=== PATIENT | male | born 1960 | race African-American/Black ===

== ENCOUNTER 2017-10-01 09:13 | Emergency (ER) | payer BC ==
[~2017-10-01] VITALS: Ht 177.8 cm; Wt 91.0 kg
[~2017-10-01 09:13] MED LIST: AMLODIPINE PO; ASA PO; ASACOL; DEXILANT PO; FERROUS SULFATE PO; HYDROCODONE; MERCAPTOPURINE PO; NOVOLIN; PREDNISONE PO; REMICADE; TIZANIDINE; ZOLPIDEM
[2017-10-01] MEDS ORDERED: ONDANSETRON HCL 4MG/2ML VIAL IV STA (09:39)
[2017-10-01] MEDS ORDERED: KETOROLAC 30MG/ML VIAL IV ONE (09:45)
[2017-10-01] MEDS ORDERED: SODIUM CHLORIDE 0.9% 1,000 ML IV ONE (09:54)
[2017-10-01 10:12] LABS: INR 1.5; PROTHROMBIN TIME 15.4 sec (9.4-11.6)
[2017-10-01 10:13] LABS: CARBON DIOXIDE 30 mEq/L (21-32); CHLORIDE 105 mEq/L (98-107)
[2017-10-01 10:15] LABS: BASOPHILS % 0.3 % (0.0-2.0); EOSINOPHILS % 0.6 % (0.0-5.0); HEMATOCRIT. 40.8 % (42.0-52.0); HEMOGLOBIN. 13.5 g/dL (14.0-18.0); LYMPHOCYTES % 8.9 % (20.0-50.0); MEAN CORPUSCULAR HEMOGLOBIN 28.9 pg (28.0-32.0); MEAN CORPUSCULAR VOLUME 87.4 fL (80.0-94.0); MEAN PLATELET VOLUME 7.9 fl (7.4-10.4); MONOCYTES % 5.1 % (2.0-8.0); NEUTROPHILS % 85.1 % (40.0-76.0); PLATELET 379 x1000/uL (130-400); RED BLOOD CELL COUNT 4.66 mill/uL (4.7-6.1); RED CELL DISTRIBUTION WIDTH 16.9 % (11.6-14.6)
[2017-10-01] MEDS ORDERED: MORPHINE SULFATE 4 MG/ML CPJ (NOT FOR IM USE) IV ONE ×2 (11:00→11:45)
[2017-10-01 11:24] LABS: CLARITY URINE CLEAR (CLEAR); COLOR URINE YELLOW (YELLOW); KETONES URINE NEGATIVE (NEGATIVE); LEUKOCYTE ESTERASE URINE TRACE (NEGATIVE); NITRITE URINE NEGATIVE (NEGATIVE); OCCULT BLOOD URINE NEGATIVE (NEGATIVE); PH URINE 7.5 (4.5-8.0); PROTEIN URINE TRACE (NEGATIVE); SPECIFIC GRAVITY URINE 1.022 (1.005-1.030); UROBILINOGEN URINE 0.2 E.U./dL (0.2-1.0)
[2017-10-01] MEDS ORDERED: DEXAMETHASONE 4MG/ML 1ML VIAL IV ONE (12:30)
[2017-10-01 12:39] VITALS: BP 128/78
== END 2017-10-01 13:08 | disposition home or self-care (01) ==
LOC: ER 09:19
DX: K51.90 Ulcerative colitis, unspecified, without complications (principal); E11.9 Type 2 diabetes mellitus without complications; F17.200 Nicotine dependence, unspecified, uncomplicated; I10 Essential (primary) hypertension; Z79.4 Long term (current) use of insulin; Z88.6 Allergy status to analgesic agent
CPT/HCPCS: 36415; 74176; 80053; 81001; 83690; 85025; 85610; 96361; 96374; 96375; 96376; 99285; J1100; J1885; J2270; J2405; J7030

== ENCOUNTER 2018-04-09 07:56 | Inpatient (IN) | payer BC ==
[~2018-04-09] VITALS: Ht 177.8 cm; Wt 100.7 kg
[~2018-04-09 07:56] MED LIST changes: -AMLODIPINE PO; -ASACOL; -FERROUS SULFATE PO; +MERC50TA PO; -MERCAPTOPURINE PO; +P20 PO; -PREDNISONE PO; -TIZANIDINE; -ZOLPIDEM
[2018-04-09] MEDS ORDERED: METHYLPREDNISOLONE SOD SUCC 125 MG/2 ML VIAL IV ONE (10:45)
[2018-04-09] MEDS ORDERED: ONDANSETRON HCL 4MG/2ML VIAL IV ONE (10:45)
[2018-04-09] MEDS ORDERED: MORPHINE SULFATE 4 MG/ML CPJ (NOT FOR IM USE) IV ONE ×2 (10:45→15:15)
[2018-04-09] MEDS ORDERED: SODIUM CHLORIDE 0.9% 1,000 ML IV ONE (10:45)
[2018-04-09 11:11] LABS: HEMATOCRIT. 38.4 % (42.0-52.0); HEMOGLOBIN. 12.5 g/dL (14.0-18.0); MEAN CORPUSCULAR HEMOGLOBIN 28.4 pg (28.0-32.0); MEAN PLATELET VOLUME 8.2 fl (7.4-10.4); PLATELET 316 x1000/uL (130-400); RED BLOOD CELL COUNT 4.41 mill/uL (4.7-6.1); RED CELL DISTRIBUTION WIDTH 17.1 % (11.6-14.6)
[2018-04-09 11:18] LABS: CHLORIDE 107 mEq/L (98-107)
[2018-04-09] MEDS ORDERED: LEVOFLOXACIN 500MG PREMIX 100 ML IV ONE (11:30)
[2018-04-09] MEDS ORDERED: METRONIDAZOLE 500 MG PREMIX 100 ML IV ONE (11:30)
[2018-04-09 12:29] LABS: PLATELET ESTIMATE NORMAL
[2018-04-09 16:00] VITALS: BP 117/47
[2018-04-09 17:00] VITALS: BP 117/47
[2018-04-09] MEDS ORDERED: LEVVL SQ (18:09)
[2018-04-09] MEDS ORDERED: INSASP SUBCUT (18:09)
[2018-04-09] MEDS ORDERED: MORPHINE SULFATE 2 MG/ML CPJ (NOT FOR IM USE) IV PRN (19:45)
[2018-04-09] MEDS ORDERED: DEXTROSE 50% WATER 50ML SYRINGE IV PRN (19:45)
[2018-04-09 20:00] VITALS: BP 149/57
[2018-04-09] MEDS ORDERED: KCL 20MEQ/100ML PREMIX 100 ML IV NR (20:00)
[2018-04-09] MEDS: ACETAMINOPHEN 650MG/20.3ML UDC PO PRN (20:13)
[2018-04-09] MEDS: PANTOPRAZOLE SODIUM 40 MG/VIAL IV SCH (20:14)
[2018-04-09] MEDS: ENOXAPARIN 30MG/0.3ML SYR SUBCUT SCH (20:14)
[2018-04-09] MEDS: MORPHINE SULFATE 4 MG/ML CPJ (NOT FOR IM USE) IV PRN (20:16)
[2018-04-09] MEDS: SODIUM CHL 0.45% + KCL 20MEQ/L 1,000 ML IV SCH (21:53)
[2018-04-09] MEDS: BLOOD SUGAR DIAGNOSTIC STRIP TEST SCH (21:53)
[2018-04-09] MEDS: INSULIN LISPRO 100 UNITS/ML SUBCUT SCH (22:42)
[2018-04-10] VITALS: BP 165/84
[2018-04-10] MEDS: MORPHINE SULFATE 4 MG/ML CPJ (NOT FOR IM USE) IV PRN ×5 (01:20→22:39)
[2018-04-10] MEDS: ACETAMINOPHEN 650MG/20.3ML UDC PO PRN ×2 (02:36→09:06)
[2018-04-10 04:00] VITALS: BP 145/84
[2018-04-10] MEDS: BLOOD SUGAR DIAGNOSTIC STRIP TEST SCH ×4 (06:40→21:42)
[2018-04-10] MEDS ORDERED: DIATR MEGLU/DIATRIZOATE SOLN 30ML PO SCH (07:00)
[2018-04-10 08:00] VITALS: BP 154/87
[2018-04-10] MEDS: PANTOPRAZOLE SODIUM 40 MG/VIAL IV SCH (08:42)
[2018-04-10] MEDS: ENOXAPARIN 30MG/0.3ML SYR SUBCUT SCH ×2 (08:42→21:42)
[2018-04-10] MEDS ORDERED: DIATR MEGLU/DIATRIZOATE SOLN 30ML PO ONE (09:00)
[2018-04-10] MEDS: INSULIN LISPRO 100 UNITS/ML SUBCUT SCH ×4 (09:48→21:52)
[2018-04-10] MEDS ORDERED: LEVOFLOXACIN 500MG PREMIX 100 ML IV SCH (10:00)
[2018-04-10 10:32] LABS: HEMATOCRIT. 37.7 % (42.0-52.0); HEMOGLOBIN. 12.3 g/dL (14.0-18.0); MEAN CORPUSCULAR HEMOGLOBIN 28.4 pg (28.0-32.0); MEAN PLATELET VOLUME 7.8 fl (7.4-10.4); PLATELET 291 x1000/uL (130-400); RED BLOOD CELL COUNT 4.33 mill/uL (4.7-6.1); RED CELL DISTRIBUTION WIDTH 17.1 % (11.6-14.6)
[2018-04-10 10:40] LABS: CHLORIDE 108 mEq/L (98-107)
[2018-04-10 10:48] LABS: HDL CHOLESTEROL 45 mg/dL (40-59)
[2018-04-10 10:49] LABS: LDL CHOLESTEROL 56 mg/dL (5-100)
[2018-04-10] MEDS ORDERED: IOHEXOL-300 100 ML BOTTLE ONE (12:22)
[2018-04-10] MEDS ORDERED: HYDROCODONE/ACETAMINOPHEN 5/325MG TABLET PO PRN (13:30)
[2018-04-10] MEDS ORDERED: KCL 20MEQ/100ML PREMIX 100 ML IV NR (14:00)
[2018-04-10] MEDS ORDERED: PIPERACILLIN/TAZOBACTAM 3.375GM/50ML PREMIX IV ONE (14:00)
[2018-04-10] MEDS ORDERED: ONDANSETRON HCL 4MG/2ML VIAL IV PRN (14:00)
[2018-04-10] MEDS: MORPHINE SULFATE 4 MG/ML CPJ (NOT FOR IM USE) IV NR ×2 (15:29→16:39)
[2018-04-10] MEDS: METHYLPREDNISOLONE SOD SUCC 40 MG/ML VIAL IV SCH ×2 (15:30→21:42)
[2018-04-10] MEDS: METRONIDAZOLE 500 MG PREMIX 100 ML IV SCH ×2 (15:31→21:42)
[2018-04-10 16:00] VITALS: BP 154/85
[2018-04-10] MEDS: SODIUM CHL 0.45% + KCL 20MEQ/L 1,000 ML IV SCH (16:43)
[2018-04-10] MEDS ORDERED: MESALAMINE 400 MG CAPSULE.DR PO SCH (17:00)
[2018-04-10] MEDS: PIPERACILLIN/TAZ 3.375G PREMIX 50 ML IV SCH (18:36)
[2018-04-10 19:17] LABS: HEMATOCRIT 36.4 % (42.0-52.0); HEMOGLOBIN 11.9 g/dL (14.0-18.0); MEAN CORPUSCULAR HEMOGLOBIN 28.3 pg (28.0-32.0); MEAN CORPUSCULAR VOLUME 86.4 fL (80.0-94.0); PLATELET 268 x1000/uL (130-400); RED BLOOD CELL COUNT 4.22 mill/uL (4.7-6.1); RED CELL DISTRIBUTION WIDTH 17.5 % (11.6-14.6)
[2018-04-10 19:49] LABS: CHLORIDE 107 mEq/L (98-107)
[2018-04-10 19:57] LABS: PLATELET ESTIMATE NORMAL
[2018-04-10 20:00] VITALS: BP 169/79
[2018-04-10] MEDS ORDERED: CLONIDINE 0.1MG TABLET PO PRN (21:45)
[2018-04-11] VITALS: BP 128/66
[2018-04-11] MEDS: PIPERACILLIN/TAZ 3.375G PREMIX 50 ML IV SCH (00:45)
[2018-04-11 02:04] LABS: CLARITY URINE CLEAR (CLEAR); COLOR URINE YELLOW (YELLOW); KETONES URINE TRACE (NEGATIVE); LEUKOCYTE ESTERASE URINE NEGATIVE (NEGATIVE); NITRITE URINE NEGATIVE (NEGATIVE); OCCULT BLOOD URINE NEGATIVE (NEGATIVE); PROTEIN URINE 1+ (NEGATIVE); SPECIFIC GRAVITY URINE 1.032 (1.005-1.030); UROBILINOGEN URINE 0.2 E.U./dL (0.2-1.0)
[2018-04-11] MEDS: MORPHINE SULFATE 4 MG/ML CPJ (NOT FOR IM USE) IV PRN (02:50)
[2018-04-11 03:08] VITALS: BP 147/84
== END 2018-04-11 03:55 | disposition short-term general hospital (02) | DRG 872 ==
LOC: ER 07:56 → 6EST 11:30 → EDBEDREQTM 11:30 → EDBEDREQ 11:30 → ENRESERV 14:07 → 5WST 04-10 15:59
PROVIDERS: ADMIT Internal Medicine; ATTEND Internal Medicine
DX: A41.9 Sepsis, unspecified organism (principal); K51.90 Ulcerative colitis, unspecified, without complications; L03.114 Cellulitis of left upper limb; L03.113 Cellulitis of right upper limb; E11.319 Type 2 diabetes mellitus with unspecified diabetic retinopathy without macular edema; E86.0 Dehydration; E87.6 Hypokalemia; I10 Essential (primary) hypertension; K80.20 Calculus of gallbladder without cholecystitis without obstruction; Z86.711 Personal history of pulmonary embolism; Z79.4 Long term (current) use of insulin
CPT/HCPCS: 36415; 74177; 80048; 80053; 80061; 81003; 82270; 82962; 85025; 85027; 87015; 87040; 87045; 87070; 87077; 87086; 87205; 87427; 87449; 87493; 89055; 96365; 96366; 96375; 99285; C9113; J1650; J1815; J1956; J2270; J2405; J2543; J2920; J2930; J3480; J3490; J7030; J7050; Q9963; Q9967

== ENCOUNTER 2018-10-30 07:21 | Inpatient (IN) | payer BC ==
[~2018-10-30] VITALS: Ht 177.8 cm; Wt 96.3 kg
[~2018-10-30 07:21] MED LIST changes: +INSASP SUBCUT; +LEVVL SQ
[2018-10-30] MEDS ORDERED: MORPHINE SULFATE 4 MG/ML CPJ (NOT FOR IM USE) IV STA (07:53)
[2018-10-30] MEDS ORDERED: ACETAMINOPHEN 325MG TABLET PO ONE (08:00)
[2018-10-30] MEDS ORDERED: SODIUM CHLORIDE 0.9% 1000ML BAG (SEPSIS BOLUS) IV ONE (08:00)
[2018-10-30] MEDS ORDERED: PIPERACILLIN/TAZ 3.375G PREMIX 50 ML IV ONE (08:00)
[2018-10-30] MEDS ORDERED: ONDANSETRON HCL 4MG/2ML INJ IV ONE (08:15)
[2018-10-30] MEDS ORDERED: KETOROLAC 30MG/ML VIAL IV ONE (08:15)
[2018-10-30 08:43] LABS: HEMATOCRIT. 41.2 % (42.0-52.0); HEMOGLOBIN. 13.4 g/dL (14.0-18.0); MEAN CORPUSCULAR HEMOGLOBIN 28.5 pg (28.0-32.0); MEAN CORPUSCULAR VOLUME 87.5 fL (80.0-94.0); MEAN PLATELET VOLUME 8.7 fl (7.4-10.4); PLATELET 240 x1000/uL (130-400); RED BLOOD CELL COUNT 4.71 mill/uL (4.7-6.1); RED CELL DISTRIBUTION WIDTH 18.6 % (11.6-14.6)
[2018-10-30 08:51] LABS: CHLORIDE 103 mEq/L (98-107); PROTHROMBIN TIME 10.3 sec (9.1-11.1)
[2018-10-30] MEDS ORDERED: POTASSIUM CHLORIDE 20MEQ TABLET SR PO ONE (09:00)
[2018-10-30 10:17] LABS: PLATELET ESTIMATE NORMAL
[2018-10-30] MEDS ORDERED: IOHEXOL-300 100 ML BOTTLE ONE (10:17)
[2018-10-30] MEDS ORDERED: LEVOFLOXACIN 750MG PREMIX 150 ML IV ONE (10:30)
[2018-10-30] MEDS: DEXT 5%/0.45% NACL 1000ML 1,000 ML IV SCH ×2 (10:45→20:45)
[2018-10-30] MEDS ORDERED: GUAIFENESIN 200MG/10ML SUGAR FREE UDC PO PRN (10:45)
[2018-10-30] MEDS ORDERED: NA PHOS,M-B/NA PHOS,DI-BA ENEMA 118ML PR PRN (10:45)
[2018-10-30] MEDS ORDERED: DOCUSATE SODIUM 100MG CAPSULE PO PRN (10:45)
[2018-10-30] MEDS ORDERED: LORAZEPAM 0.5MG TABLET PO PRN (10:45)
[2018-10-30] MEDS ORDERED: IPRATROPIUM/ALBUTEROL 0.5-3(2.5)MG/3ML NEB INH PRN (10:45)
[2018-10-30] MEDS ORDERED: MAGNESIUM/ALUMINUM HYDROXIDE/SIMETHICONE 30ML UDC PO PRN (10:45)
[2018-10-30] MEDS ORDERED: ACETAMINOPHEN 650MG SUPP PR PRN (10:45)
[2018-10-30] MEDS ORDERED: MORPHINE SULFATE 4 MG/ML CPJ (NOT FOR IM USE) IV ONE (11:15)
[2018-10-30] MEDS ORDERED: ONDANSETRON HCL 4MG/2ML INJ IV PRN (11:15)
[2018-10-30 12:30] VITALS: BP 100/55
[2018-10-30] MEDS: ASPIRIN 81MG EC TABLET PO SCH ×2 (12:45→14:29)
[2018-10-30 13:28] LABS: BG BASE EXCESS -3.3 mmol/L (-2.0-2.0); BG CARBOXYHEMOGLOBIN 0.8 % (0.5-1.5); BG DEOXYHEMOGLOBIN 10.5 % (0.0-5.0); BG FRACTION INSPIRED OXYGEN 21; BG HCO3 ACT 19.9 mmol/L (22.0-26.0); BG METHEMOGLOBIN 0.2 % (0.0-1.5); BG OXYGEN SATURATION 89.4 % (92.0-98.5); BG OXYHEMOGLOBIN 88.5 % (94.0-97.0); BG PCO2 30.2 mmHg (35.0-45.0); BG PH 7.436 (7.350-7.450); BG SAMPLE SITE RIGHT BRACHIAL; BG TOTAL HEMOGLOBIN 12.1 g/dL (12.0-18.0); BG VENT MODE ROOM AIR
[2018-10-30 14:00] VITALS: BP 105/40
[2018-10-30] MEDS ORDERED: PIPERACILLIN/TAZ 3.375G PREMIX 50 ML IV SCH (14:00)
[2018-10-30] MEDS: PANTOPRAZOLE SODIUM 40 MG/VIAL IV SCH (14:29)
[2018-10-30] MEDS: OSELTAMIVIR 75MG CAPSULE PO SCH ×2 (14:29→20:21)
[2018-10-30] MEDS: ENOXAPARIN 40MG/0.4ML SYR SUBCUT SCH (14:30)
[2018-10-30] MEDS: METOCLOPRAMIDE HCL 10MG/2ML VIAL IV SCH ×2 (14:30→17:00)
[2018-10-30] MEDS ORDERED: VANCOMYCIN 1,750 MG in DEXT 5% WATER 250 ML IV NR (14:30)
[2018-10-30 15:10] LABS: CREATINE KINASE MB FRACTION 1.1 ng/mL (0.5-3.6)
[2018-10-30 16:00] VITALS: BP 110/67
[2018-10-30] MEDS: PIPERACILLIN/TAZ 3.375G PREMIX 50 ML IV SCH ×2 (16:25→20:22)
[2018-10-30] MEDS: HYDROCODONE/ACETAMINOPHEN 5/325MG TABLET PO PRN (16:25)
[2018-10-30 18:00] VITALS: BP 121/60
[2018-10-30] MEDS ORDERED: DEXTROSE 50% WATER 50ML SYRINGE IV PRN (18:45)
[2018-10-30 20:00] VITALS: BP 118/75
[2018-10-30] MEDS: METHYLPREDNISOLONE SOD SUCC 40 MG/ML VIAL IV SCH (20:20)
[2018-10-30] MEDS: ACETAMINOPHEN 325MG TABLET PO PRN (20:22)
[2018-10-30] MEDS: ONDANSETRON HCL 4MG/2ML INJ IV PRN (20:23)
[2018-10-30] MEDS: BLOOD SUGAR DIAGNOSTIC STRIP TEST SCH (20:37)
[2018-10-30] MEDS: INSULIN LISPRO 100 UNITS/ML SUBCUT SCH (20:47)
[2018-10-30 22:00] VITALS: BP 140/78
[2018-10-31] VITALS (13 sets, daily range): BP systolic 128–187; BP diastolic 61–97
[2018-10-31] MEDS: HYDROCODONE/ACETAMINOPHEN 5/325MG TABLET PO PRN ×4 (00:01→22:32)
[2018-10-31 00:02] LABS: CREATINE KINASE MB FRACTION 1.9 ng/mL (0.5-3.6)
[2018-10-31] MEDS: METOCLOPRAMIDE HCL 10MG/2ML VIAL IV SCH ×3 (00:07→06:09)
[2018-10-31] MEDS: IPRATROPIUM/ALBUTEROL 0.5-3(2.5)MG/3ML NEB INH SCH ×6 (00:49→21:30)
[2018-10-31] MEDS: PIPERACILLIN/TAZ 3.375G PREMIX 50 ML IV SCH ×4 (03:12→20:29)
[2018-10-31] MEDS: LORAZEPAM 1MG TABLET PO PRN ×2 (03:22→17:34)
[2018-10-31 04:14] LABS: CLARITY URINE CLEAR (CLEAR); COLOR URINE YELLOW (YELLOW); KETONES URINE NEGATIVE (NEGATIVE); LEUKOCYTE ESTERASE URINE NEGATIVE (NEGATIVE); NITRITE URINE NEGATIVE (NEGATIVE); OCCULT BLOOD URINE NEGATIVE (NEGATIVE); PH URINE 5.5 (4.5-8.0); PROTEIN URINE TRACE (NEGATIVE); SPECIFIC GRAVITY URINE 1.015 (1.005-1.030); UROBILINOGEN URINE 0.2 E.U./dL (0.2-1.0)
[2018-10-31] MEDS: METHYLPREDNISOLONE SOD SUCC 40 MG/ML VIAL IV SCH ×2 (04:38→11:05)
[2018-10-31 05:11] LABS: *COCAINE SCREEN URINE NEGATIVE (NEGATIVE); METHADONE URINE SCREEN NEGATIVE (NEGATIVE); OPIATES URINE SCREEN PRESUMTIVE POSITIVE (NEGATIVE)
[2018-10-31 05:12] LABS: *BARBITURATES SCREEN URINE NEGATIVE (NEGATIVE); *BENZODIAZEPINES SCREEN URINE NEGATIVE (NEGATIVE); CANNABINOID URINE SCREEN PRESUMTIVE POSITIVE (NEGATIVE); PHENCYCLIDINE URINE SCREEN NEGATIVE (NEGATIVE)
[2018-10-31 05:13] LABS: *AMPHETAMINES SCREEN URINE NEGATIVE (NEGATIVE)
[2018-10-31 06:04] LABS: BG BASE EXCESS -2.5 mmol/L (-2.0-2.0); BG CARBOXYHEMOGLOBIN 0.3 % (0.5-1.5); BG DEOXYHEMOGLOBIN 12.3 % (0.0-5.0); BG FRACTION INSPIRED OXYGEN 36; BG HCO3 ACT 20.6 mmol/L (22.0-26.0); BG METHEMOGLOBIN 0.3 % (0.0-1.5); BG OXYGEN SATURATION 87.6 % (92.0-98.5); BG OXYHEMOGLOBIN 87.1 % (94.0-97.0); BG PCO2 30.8 mmHg (35.0-45.0); BG PH 7.444 (7.350-7.450); BG PO2 50.8 mmHg (75.0-100.0); BG SAMPLE SITE RIGHT RADIAL; BG TOTAL HEMOGLOBIN 12.5 g/dL (12.0-18.0)
[2018-10-31] MEDS: VANCOMYCIN 1250MG in DEXTROSE 5% WATER 250ML IV SCH ×2 (06:09→16:13)
[2018-10-31] MEDS: DEXT 5%/0.45% NACL 1000ML 1,000 ML IV SCH (06:45)
[2018-10-31] MEDS: BLOOD SUGAR DIAGNOSTIC STRIP TEST SCH ×4 (07:24→21:00)
[2018-10-31 07:29] LABS: HEMATOCRIT. 36.2 % (42.0-52.0); HEMOGLOBIN. 11.7 g/dL (14.0-18.0); MEAN CORPUSCULAR HEMOGLOBIN 28.2 pg (28.0-32.0); MEAN PLATELET VOLUME 8.4 fl (7.4-10.4); PLATELET 218 x1000/uL (130-400); RED BLOOD CELL COUNT 4.16 mill/uL (4.7-6.1); RED CELL DISTRIBUTION WIDTH 18.3 % (11.6-14.6)
[2018-10-31] MEDS: OSELTAMIVIR 75MG CAPSULE PO SCH ×2 (08:07→20:26)
[2018-10-31] MEDS: ASPIRIN 81MG EC TABLET PO SCH (08:07)
[2018-10-31] MEDS: PANTOPRAZOLE SODIUM 40 MG/VIAL IV SCH (08:08)
[2018-10-31] MEDS: ONDANSETRON HCL 4MG/2ML INJ IV PRN (08:08)
[2018-10-31] MEDS: ENOXAPARIN 40MG/0.4ML SYR SUBCUT SCH (08:08)
[2018-10-31] MEDS: INSULIN LISPRO 100 UNITS/ML SUBCUT SCH ×4 (08:08→21:00)
[2018-10-31 08:18] LABS: BG BASE EXCESS -4.3 mmol/L (-2.0-2.0); BG CARBOXYHEMOGLOBIN 0.7 % (0.5-1.5); BG DEOXYHEMOGLOBIN 7.3 % (0.0-5.0); BG HCO3 ACT 18.4 mmol/L (22.0-26.0); BG METHEMOGLOBIN 0.1 % (0.0-1.5); BG OXYGEN SATURATION 92.6 % (92.0-98.5); BG OXYHEMOGLOBIN 91.9 % (94.0-97.0); BG PCO2 27.2 mmHg (35.0-45.0); BG PH 7.447 (7.350-7.450); BG PO2 62.5 mmHg (75.0-100.0); BG SAMPLE SITE RIGHT RADIAL; BG TOTAL HEMOGLOBIN 12.9 g/dL (12.0-18.0); BG VENT MODE MASK - VENTI
[2018-10-31 09:55] LABS: CHLORIDE 108 mEq/L (98-107)
[2018-10-31] MEDS: FLUOXETINE HCL 20MG CAPSULE PO SCH (10:41)
[2018-10-31] MEDS: DEXT 5%/0.45% NACL KCL 20MEQ/L 1,000 ML IV SCH ×2 (11:05→21:00)
[2018-10-31] MEDS: INSULIN GLARGINE UD 100 UNITS/ML SYR SUBCUT SCH (11:07)
[2018-10-31 11:14] LABS: HDL CHOLESTEROL 42 mg/dL (40-59)
[2018-10-31 11:16] LABS: LDL CHOLESTEROL 44 mg/dL (5-100)
[2018-10-31 11:20] LABS: T4 FREE 1.15 ng/dL (0.76-1.46)
[2018-10-31] MEDS ORDERED: MERCAPTOPURINE 50MG TABLET PO SCH (11:30)
[2018-10-31 11:56] LABS: PHOSPHORUS 1.5 mg/dL (2.5-4.9)
[2018-10-31] MEDS: GABAPENTIN 300MG CAPSULE PO SCH ×2 (11:57→22:24)
[2018-10-31] MEDS: CLONIDINE 0.1MG TABLET PO PRN ×2 (11:57→17:34)
[2018-10-31] MEDS ORDERED: DEXT 5%/0.45% NACL KCL 30MEQ/L 1,000 ML IV SCH (12:00)
[2018-10-31 14:14] LABS: PLATELET ESTIMATE NORMAL
[2018-10-31 14:25] LABS: BG BASE EXCESS -2.7 mmol/L (-2.0-2.0); BG BILEVEL POS AIRWAY PRESSURE 15/5; BG CARBOXYHEMOGLOBIN 0.1 % (0.5-1.5); BG DEOXYHEMOGLOBIN 2.7 % (0.0-5.0); BG HCO3 ACT 20.1 mmol/L (22.0-26.0); BG METHEMOGLOBIN 0.3 % (0.0-1.5); BG OXYGEN SATURATION 97.3 % (92.0-98.5); BG OXYHEMOGLOBIN 96.9 % (94.0-97.0); BG PH 7.458 (7.350-7.450); BG PO2 110.3 mmHg (75.0-100.0); BG SAMPLE SITE RIGHT RADIAL; BG TOTAL HEMOGLOBIN 12.2 g/dL (12.0-18.0); BG VENT MODE MASK - BIPAP; BG VENT RATE 12 set
[2018-10-31] MEDS ORDERED: HYDRALAZINE 20MG/ML VIAL IV NR (14:30)
[2018-10-31] MEDS ORDERED: MAGNESIUM 1 G PREMIX 100 ML IV NR (15:30)
[2018-10-31] MEDS: POTASSIUM-SODIUM PHOSPHATE POWDER PACKET PO SCH (17:34)
[2018-10-31] MEDS: RIVAROXABAN 20 MG TABLET PO SCH (17:34)
[2018-10-31] MEDS ORDERED: NITROGLYCERIN 0.4MG TABLET SL SL PRN (17:45)
[2018-10-31] MEDS ORDERED: NITROGLYCERIN 0.4MG TABLET SL SL ONE (17:45)
[2018-10-31] MEDS: TAMSULOSIN HCL 0.4MG SR CAPSULE PO SCH (20:26)
[2018-10-31] MEDS: ATORVASTATIN CALCIUM 20MG TABLET PO SCH (22:24)
[2018-10-31 23:55] LABS: BG BASE EXCESS -1.3 mmol/L (-2.0-2.0); BG BILEVEL POS AIRWAY PRESSURE 15/5; BG CARBOXYHEMOGLOBIN 0.2 % (0.5-1.5); BG FRACTION INSPIRED OXYGEN 50; BG HCO3 ACT 21.5 mmol/L (22.0-26.0); BG METHEMOGLOBIN 0.2 % (0.0-1.5); BG OXYHEMOGLOBIN 93.6 % (94.0-97.0); BG PCO2 30.4 mmHg (35.0-45.0); BG PH 7.467 (7.350-7.450); BG PO2 66.7 mmHg (75.0-100.0); BG SAMPLE SITE RIGHT BRACHIAL; BG TOTAL HEMOGLOBIN 12.3 g/dL (12.0-18.0); BG VENT MODE MASK - BIPAP; BG VENT RATE 12 set
[2018-11-01] VITALS (65 sets, daily range): BP systolic 91–172; BP diastolic 41–87
[2018-11-01] MEDS: IPRATROPIUM/ALBUTEROL 0.5-3(2.5)MG/3ML NEB INH SCH ×6 (00:40→20:16)
[2018-11-01] MEDS: PIPERACILLIN/TAZ 3.375G PREMIX 50 ML IV SCH ×4 (02:48→22:23)
[2018-11-01] MEDS: ONDANSETRON HCL 4MG/2ML INJ IV PRN (05:23)
[2018-11-01] MEDS: VANCOMYCIN 1250MG in DEXTROSE 5% WATER 250ML IV SCH ×2 (05:24→15:20)
[2018-11-01] MEDS: ACETAMINOPHEN 325MG TABLET PO PRN ×2 (05:45→21:48)
[2018-11-01] MEDS: GABAPENTIN 300MG CAPSULE PO SCH ×3 (05:45→21:49)
[2018-11-01 06:07] LABS: BASOPHILS % 0.1 % (0.0-2.0); HEMATOCRIT. 34.3 % (42.0-52.0); HEMOGLOBIN. 11.3 g/dL (14.0-18.0); LYMPHOCYTES % 8.5 % (20.0-50.0); MEAN CORPUSCULAR HEMOGLOBIN 28.5 pg (28.0-32.0); MEAN CORPUSCULAR VOLUME 86.4 fL (80.0-94.0); MEAN PLATELET VOLUME 8.2 fl (7.4-10.4); MONOCYTES % 3.8 % (2.0-8.0); NEUTROPHILS % 87.6 % (40.0-76.0); PLATELET 223 x1000/uL (130-400); RED BLOOD CELL COUNT 3.96 mill/uL (4.7-6.1); RED CELL DISTRIBUTION WIDTH 18.8 % (11.6-14.6)
[2018-11-01 06:12] LABS: CHLORIDE 109 mEq/L (98-107)
[2018-11-01 06:19] LABS: PHOSPHORUS 1.4 mg/dL (2.5-4.9)
[2018-11-01] MEDS: DEXT 5%/0.45% NACL KCL 20MEQ/L 1,000 ML IV SCH ×2 (06:19→17:54)
[2018-11-01] MEDS: BLOOD SUGAR DIAGNOSTIC STRIP TEST SCH ×4 (06:20→22:00)
[2018-11-01] MEDS: INSULIN LISPRO 100 UNITS/ML SUBCUT SCH ×4 (06:20→22:24)
[2018-11-01 08:30] LABS: BG BASE EXCESS -3.5 mmol/L (-2.0-2.0); BG BILEVEL POS AIRWAY PRESSURE 15/5; BG DEOXYHEMOGLOBIN 1.5 % (0.0-5.0); BG FRACTION INSPIRED OXYGEN 80; BG HCO3 ACT 19.4 mmol/L (22.0-26.0); BG METHEMOGLOBIN 0.2 % (0.0-1.5); BG OXYGEN SATURATION 98.5 % (92.0-98.5); BG OXYHEMOGLOBIN 98.3 % (94.0-97.0); BG PCO2 28.2 mmHg (35.0-45.0); BG PH 7.455 (7.350-7.450); BG PO2 118.9 mmHg (75.0-100.0); BG SAMPLE SITE RIGHT RADIAL; BG TOTAL HEMOGLOBIN 10.8 g/dL (12.0-18.0); BG VENT MODE MASK - BIPAP; BG VENT RATE 12 set
[2018-11-01] MEDS: FLUOXETINE HCL 20MG CAPSULE PO SCH (09:00)
[2018-11-01] MEDS ORDERED: POTASSIUM CHLORIDE 20MEQ TABLET SR PO NR (09:00)
[2018-11-01] MEDS ORDERED: SODIUM PHOS,M-BASIC-D-BASIC 15 MM in DEXT 5% WATER 245 ML IV ONE (09:00)
[2018-11-01] MEDS: POTASSIUM-SODIUM PHOSPHATE POWDER PACKET PO SCH ×2 (09:00→17:52)
[2018-11-01] MEDS: OSELTAMIVIR 75MG CAPSULE PO SCH ×2 (09:00→21:48)
[2018-11-01] MEDS ORDERED: MERCAPTOPURINE 50MG TABLET PO SCH (09:00)
[2018-11-01] MEDS ORDERED: METHYLPREDNISOLONE SOD SUCC 40 MG/ML VIAL IV SCH (09:15)
[2018-11-01] MEDS: ASPIRIN 81MG EC TABLET PO SCH (09:55)
[2018-11-01] MEDS: FAMOTIDINE 20MG/2ML VIAL IV SCH ×2 (09:55→21:48)
[2018-11-01] MEDS: TAMSULOSIN HCL 0.4MG SR CAPSULE PO SCH (10:00)
[2018-11-01] MEDS: INSULIN GLARGINE UD 100 UNITS/ML SYR SUBCUT SCH (10:14)
[2018-11-01] MEDS ORDERED: POTASSIUM PHOS,M-BASIC-D-BASIC 30 MMOL in SODIUM CHLORIDE 0.9% 500 ML IV ONE (10:30)
[2018-11-01] MEDS: NITROGLYCERIN 0.4MG TABLET SL SL PRN ×2 (11:25→11:43)
[2018-11-01] MEDS ORDERED: MORPHINE SULFATE 4 MG/ML CPJ (NOT FOR IM USE) IV PRN (11:30)
[2018-11-01] MEDS ORDERED: FUROSEMIDE 40MG/4ML VIAL IVP NR (12:00)
[2018-11-01] MEDS ORDERED: NITROGLYCERIN 50MG PREMIX 250 ML IV PRN (12:00)
[2018-11-01 13:32] LABS: BG BASE EXCESS -1.6 mmol/L (-2.0-2.0); BG BILEVEL POS AIRWAY PRESSURE ST=18/5; BG CARBOXYHEMOGLOBIN 0.3 % (0.5-1.5); BG DEOXYHEMOGLOBIN 2.3 % (0.0-5.0); BG FRACTION INSPIRED OXYGEN 100; BG HCO3 ACT 21.2 mmol/L (22.0-26.0); BG METHEMOGLOBIN 0.3 % (0.0-1.5); BG OXYGEN SATURATION 97.7 % (92.0-98.5); BG OXYHEMOGLOBIN 97.1 % (94.0-97.0); BG PCO2 29.8 mmHg (35.0-45.0); BG PO2 104.2 mmHg (75.0-100.0); BG PRESSURE SUPPORT 13; BG SAMPLE SITE RIGHT BRACHIAL; BG TOTAL HEMOGLOBIN 11.3 g/dL (12.0-18.0); BG VENT MODE MASK - BIPAP; BG VENT RATE 16 set
[2018-11-01] MEDS: HYDROCODONE/ACETAMINOPHEN 5/325MG TABLET PO PRN (15:11)
[2018-11-01] MEDS: RIVAROXABAN 20 MG TABLET PO SCH (17:53)
[2018-11-01] MEDS: MERCAPTOPURINE 50MG TABLET PO SCH (18:00)
[2018-11-01] MEDS: ATORVASTATIN CALCIUM 20MG TABLET PO SCH (21:49)
[2018-11-02] VITALS (22 sets, daily range): BP systolic 128–175; BP diastolic 63–107
[2018-11-02] MEDS: IPRATROPIUM/ALBUTEROL 0.5-3(2.5)MG/3ML NEB INH SCH ×5 (00:35→20:07)
[2018-11-02] MEDS: VANCOMYCIN 1250MG in DEXTROSE 5% WATER 250ML IV SCH ×2 (01:31→08:11)
[2018-11-02] MEDS: PIPERACILLIN/TAZ 3.375G PREMIX 50 ML IV SCH ×2 (03:33→08:11)
[2018-11-02] MEDS: LORAZEPAM 1MG TABLET PO PRN (04:59)
[2018-11-02] MEDS: HYDROCODONE/ACETAMINOPHEN 5/325MG TABLET PO PRN ×2 (05:01→13:33)
[2018-11-02 06:21] LABS: HEMATOCRIT. 31.5 % (42.0-52.0); HEMOGLOBIN. 10.3 g/dL (14.0-18.0); MEAN CORPUSCULAR HEMOGLOBIN 28.2 pg (28.0-32.0); MEAN CORPUSCULAR VOLUME 86.2 fL (80.0-94.0); MEAN PLATELET VOLUME 8.1 fl (7.4-10.4); PLATELET 230 x1000/uL (130-400); RED BLOOD CELL COUNT 3.66 mill/uL (4.7-6.1); RED CELL DISTRIBUTION WIDTH 18.9 % (11.6-14.6)
[2018-11-02 06:27] LABS: CHLORIDE 110 mEq/L (98-107)
[2018-11-02 06:33] LABS: PHOSPHORUS 1.6 mg/dL (2.5-4.9)
[2018-11-02] MEDS: BLOOD SUGAR DIAGNOSTIC STRIP TEST SCH ×4 (06:56→21:00)
[2018-11-02] MEDS: INSULIN LISPRO 100 UNITS/ML SUBCUT SCH ×4 (07:00→23:05)
[2018-11-02] MEDS: GABAPENTIN 300MG CAPSULE PO SCH ×3 (07:01→21:19)
[2018-11-02 07:54] LABS: PLATELET ESTIMATE NORMAL
[2018-11-02] MEDS: OSELTAMIVIR 75MG CAPSULE PO SCH ×2 (08:10→21:16)
[2018-11-02] MEDS: POTASSIUM-SODIUM PHOSPHATE POWDER PACKET PO SCH ×2 (08:10→18:16)
[2018-11-02] MEDS: FLUOXETINE HCL 20MG CAPSULE PO SCH (08:10)
[2018-11-02] MEDS: ASPIRIN 81MG EC TABLET PO SCH (08:10)
[2018-11-02] MEDS: FAMOTIDINE 20MG/2ML VIAL IV SCH ×2 (08:11→21:16)
[2018-11-02] MEDS: DEXT 5%/0.45% NACL KCL 20MEQ/L 1,000 ML IV SCH (08:16)
[2018-11-02] MEDS ORDERED: PREDNISONE 20MG TABLET PO SCH (09:00)
[2018-11-02] MEDS ORDERED: POTASSIUM PHOS,M-BASIC-D-BASIC 30 MMOL in DEXT 5% WATER 500 ML IV SCH (10:00)
[2018-11-02] MEDS: ONDANSETRON HCL 4MG/2ML INJ IV PRN (10:19)
[2018-11-02] MEDS: MERCAPTOPURINE 50MG TABLET PO SCH (10:20)
[2018-11-02] MEDS: INSULIN GLARGINE UD 100 UNITS/ML SYR SUBCUT SCH (10:23)
[2018-11-02] MEDS: SODIUM CHL 0.45% + KCL 20MEQ/L 1,000 ML IV SCH ×2 (10:27→18:31)
[2018-11-02] MEDS ORDERED: LORAZEPAM 1MG TABLET PO PRN (11:15)
[2018-11-02] MEDS: CLONIDINE 0.1MG TABLET PO SCH ×2 (13:35→21:19)
[2018-11-02 14:11] LABS: BG BASE EXCESS -0.4 mmol/L (-2.0-2.0); BG BILEVEL POS AIRWAY PRESSURE ST=15/5; BG CARBOXYHEMOGLOBIN 0.8 % (0.5-1.5); BG DEOXYHEMOGLOBIN 4.9 % (0.0-5.0); BG FRACTION INSPIRED OXYGEN 60; BG HCO3 ACT 22.7 mmol/L (22.0-26.0); BG METHEMOGLOBIN 0.3 % (0.0-1.5); BG PH 7.468 (7.350-7.450); BG PO2 75.2 mmHg (75.0-100.0); BG PRESSURE SUPPORT 10; BG SAMPLE SITE LEFT RADIAL; BG TOTAL HEMOGLOBIN 11.2 g/dL (12.0-18.0); BG VENT MODE MASK - BIPAP; BG VENT RATE 16 set
[2018-11-02] MEDS ORDERED: LEVOFLOXACIN 500MG PREMIX 100 ML IV SCH (14:45)
[2018-11-02] MEDS: METHYLPREDNISOLONE SOD SUCC 40 MG/ML VIAL IV SCH (18:16)
[2018-11-02] MEDS: RIVAROXABAN 20 MG TABLET PO SCH (18:16)
[2018-11-02] MEDS: FLUCONAZOLE 400MG/200ML BAG 200 ML IV SCH ×2 (18:29→20:10)
[2018-11-02] MEDS: ATORVASTATIN CALCIUM 20MG TABLET PO SCH (21:16)
[2018-11-02] MEDS: SULFAMETHOXAZOLE/TRIMETHOPRIM 800/160MG TABLET PO SCH (21:17)
[2018-11-02] MEDS: TAMSULOSIN HCL 0.4MG SR CAPSULE PO SCH (21:18)
[2018-11-02] MEDS: AZITHROMYCIN 500 MG in DEXT 5% WATER 250 ML IV SCH (21:19)
[2018-11-02] MEDS: CEFTRIAXONE 1 G PREMIX 50 ML IV SCH (21:20)
[2018-11-03] VITALS (11 sets, daily range): BP systolic 107–177; BP diastolic 72–92
[2018-11-03] MEDS: IPRATROPIUM/ALBUTEROL 0.5-3(2.5)MG/3ML NEB INH SCH ×5 (00:23→21:08)
[2018-11-03] MEDS: HYDROCODONE/ACETAMINOPHEN 5/325MG TABLET PO PRN ×4 (03:12→21:37)
[2018-11-03] MEDS: METHYLPREDNISOLONE SOD SUCC 40 MG/ML VIAL IV SCH ×2 (03:13→10:33)
[2018-11-03] MEDS: GABAPENTIN 300MG CAPSULE PO SCH ×3 (05:43→20:45)
[2018-11-03] MEDS: CLONIDINE 0.1MG TABLET PO SCH (05:44)
[2018-11-03] MEDS: BLOOD SUGAR DIAGNOSTIC STRIP TEST SCH ×4 (05:55→21:22)
[2018-11-03] MEDS: INSULIN LISPRO 100 UNITS/ML SUBCUT SCH ×4 (06:17→21:24)
[2018-11-03] MEDS: SODIUM CHL 0.45% + KCL 20MEQ/L 1,000 ML IV SCH (06:18)
[2018-11-03 06:44] LABS: HEMOGLOBIN. 10.1 g/dL (14.0-18.0); MEAN CORPUSCULAR HEMOGLOBIN 28.2 pg (28.0-32.0); MEAN CORPUSCULAR VOLUME 86.4 fL (80.0-94.0); RED BLOOD CELL COUNT 3.59 mill/uL (4.7-6.1); RED CELL DISTRIBUTION WIDTH 18.8 % (11.6-14.6)
[2018-11-03 07:05] LABS: CHLORIDE 108 mEq/L (98-107)
[2018-11-03 07:20] LABS: PHOSPHORUS 2.2 mg/dL (2.5-4.9)
[2018-11-03 07:45] LABS: BG BILEVEL POS AIRWAY PRESSURE 15/5; BG CARBOXYHEMOGLOBIN 0.5 % (0.5-1.5); BG DEOXYHEMOGLOBIN 8.6 % (0.0-5.0); BG HCO3 ACT 21.9 mmol/L (22.0-26.0); BG METHEMOGLOBIN 0.2 % (0.0-1.5); BG OXYGEN SATURATION 91.3 % (92.0-98.5); BG OXYHEMOGLOBIN 90.7 % (94.0-97.0); BG PCO2 30.4 mmHg (35.0-45.0); BG PH 7.475 (7.350-7.450); BG PO2 61.2 mmHg (75.0-100.0); BG SAMPLE SITE RIGHT BRACHIAL; BG TOTAL HEMOGLOBIN 10.8 g/dL (12.0-18.0); BG VENT MODE MASK - BIPAP; BG VENT RATE 16 set
[2018-11-03] MEDS: FAMOTIDINE 20MG/2ML VIAL IV SCH ×2 (10:29→20:47)
[2018-11-03] MEDS: POTASSIUM-SODIUM PHOSPHATE POWDER PACKET PO SCH ×2 (10:30→18:00)
[2018-11-03] MEDS: FLUOXETINE HCL 20MG CAPSULE PO SCH (10:30)
[2018-11-03] MEDS: ASPIRIN 81MG EC TABLET PO SCH (10:31)
[2018-11-03] MEDS: SULFAMETHOXAZOLE/TRIMETHOPRIM 800/160MG TABLET PO SCH ×2 (10:31→20:47)
[2018-11-03] MEDS: MERCAPTOPURINE 50MG TABLET PO SCH (10:31)
[2018-11-03] MEDS: OSELTAMIVIR 75MG CAPSULE PO SCH ×2 (10:32→20:44)
[2018-11-03] MEDS: AMLODIPINE 5MG TABLET PO SCH ×2 (10:32→20:48)
[2018-11-03] MEDS ORDERED: LORAZEPAM 1MG TABLET PO PRN (11:15)
[2018-11-03] MEDS ORDERED: POTASSIUM PHOS,M-BASIC-D-BASIC 20 MMOL in DEXT 5% WATER 243.3333 ML IV NR (12:00)
[2018-11-03 12:41] LABS: PLATELET 211 x1000/uL (130-400)
[2018-11-03 12:46] LABS: PLATELET ESTIMATE NORMAL
[2018-11-03] MEDS: CLONIDINE 0.2MG TABLET PO SCH ×2 (13:28→20:45)
[2018-11-03] MEDS: SODIUM CHLORIDE 0.45% 1,000 ML IV SCH (13:28)
[2018-11-03] MEDS: INSULIN GLARGINE UD 100 UNITS/ML SYR SUBCUT SCH (13:36)
[2018-11-03] MEDS: ONDANSETRON HCL 4MG/2ML INJ IV PRN (15:40)
[2018-11-03] MEDS: CEFTRIAXONE 1 G PREMIX 50 ML IV SCH (18:00)
[2018-11-03] MEDS: RIVAROXABAN 20 MG TABLET PO SCH (18:00)
[2018-11-03] MEDS: FLUCONAZOLE 400MG/200ML BAG 200 ML IV SCH ×2 (18:45→21:26)
[2018-11-03] MEDS: AZITHROMYCIN 500 MG in DEXT 5% WATER 250 ML IV SCH (20:44)
[2018-11-03] MEDS: TAMSULOSIN HCL 0.4MG SR CAPSULE PO SCH (20:46)
[2018-11-03] MEDS: PREDNISONE 20MG TABLET PO SCH (20:47)
[2018-11-03] MEDS: ATORVASTATIN CALCIUM 20MG TABLET PO SCH (20:47)
[2018-11-04] VITALS (19 sets, daily range): BP systolic 86–143; BP diastolic 43–83
[2018-11-04] MEDS: IPRATROPIUM/ALBUTEROL 0.5-3(2.5)MG/3ML NEB INH SCH ×6 (00:39→21:23)
[2018-11-04 05:32] LABS: HEMATOCRIT. 31.4 % (42.0-52.0); HEMOGLOBIN. 10.2 g/dL (14.0-18.0); MEAN CORPUSCULAR HEMOGLOBIN 28.2 pg (28.0-32.0); MEAN CORPUSCULAR VOLUME 87.1 fL (80.0-94.0); PLATELET 190 x1000/uL (130-400); RED CELL DISTRIBUTION WIDTH 18.6 % (11.6-14.6)
[2018-11-04 06:06] LABS: CHLORIDE 106 mEq/L (98-107)
[2018-11-04] MEDS: GABAPENTIN 300MG CAPSULE PO SCH ×3 (06:16→20:57)
[2018-11-04] MEDS: CLONIDINE 0.2MG TABLET PO SCH ×3 (06:16→20:58)
[2018-11-04] MEDS: INSULIN LISPRO 100 UNITS/ML SUBCUT SCH ×4 (06:18→21:00)
[2018-11-04] MEDS: BLOOD SUGAR DIAGNOSTIC STRIP TEST SCH ×4 (06:20→21:00)
[2018-11-04] MEDS: HYDROCODONE/ACETAMINOPHEN 5/325MG TABLET PO PRN ×5 (08:20→19:09)
[2018-11-04 08:23] LABS: BG BASE EXCESS -2.3 mmol/L (-2.0-2.0); BG BILEVEL POS AIRWAY PRESSURE 15/5; BG DEOXYHEMOGLOBIN 4.5 % (0.0-5.0); BG FRACTION INSPIRED OXYGEN 60; BG HCO3 ACT 21.7 mmol/L (22.0-26.0); BG METHEMOGLOBIN 0.3 % (0.0-1.5); BG OXYGEN SATURATION 95.5 % (92.0-98.5); BG OXYHEMOGLOBIN 95.2 % (94.0-97.0); BG PCO2 34.6 mmHg (35.0-45.0); BG PH 7.416 (7.350-7.450); BG PO2 83.2 mmHg (75.0-100.0); BG SAMPLE SITE RIGHT BRACHIAL; BG TOTAL HEMOGLOBIN 11.1 g/dL (12.0-18.0); BG VENT MODE MASK - BIPAP
[2018-11-04] MEDS: FLUOXETINE HCL 20MG CAPSULE PO SCH (10:02)
[2018-11-04] MEDS: SULFAMETHOXAZOLE/TRIMETHOPRIM 800/160MG TABLET PO SCH ×2 (10:03→20:57)
[2018-11-04] MEDS: ASPIRIN 81MG EC TABLET PO SCH (10:03)
[2018-11-04] MEDS: AMLODIPINE 5MG TABLET PO SCH (10:03)
[2018-11-04] MEDS: MERCAPTOPURINE 50MG TABLET PO SCH (10:04)
[2018-11-04] MEDS: FAMOTIDINE 20MG/2ML VIAL IV SCH ×2 (10:04→20:57)
[2018-11-04] MEDS: POTASSIUM-SODIUM PHOSPHATE POWDER PACKET PO SCH ×2 (10:04→17:10)
[2018-11-04] MEDS: INSULIN GLARGINE UD 100 UNITS/ML SYR SUBCUT SCH (10:05)
[2018-11-04] MEDS: SODIUM CHLORIDE 0.45% 1,000 ML IV SCH ×2 (10:06→12:40)
[2018-11-04 11:58] LABS: BG BASE EXCESS -3.1 mmol/L (-2.0-2.0); BG CARBOXYHEMOGLOBIN 0.3 % (0.5-1.5); BG DEOXYHEMOGLOBIN 4.7 % (0.0-5.0); BG FRACTION INSPIRED OXYGEN 100; BG METHEMOGLOBIN 0.2 % (0.0-1.5); BG OXYGEN SATURATION 95.3 % (92.0-98.5); BG OXYHEMOGLOBIN 94.8 % (94.0-97.0); BG PH 7.408 (7.350-7.450); BG PO2 85.4 mmHg (75.0-100.0); BG SAMPLE SITE RIGHT RADIAL; BG TOTAL HEMOGLOBIN 10.4 g/dL (12.0-18.0); BG VENT MODE MASK - NRB
[2018-11-04 12:22] LABS: PLATELET ESTIMATE NORMAL
[2018-11-04] MEDS: FUROSEMIDE 40MG/4ML VIAL IVP SCH (13:22)
[2018-11-04] MEDS: RIVAROXABAN 20 MG TABLET PO SCH (17:10)
[2018-11-04] MEDS: CEFTRIAXONE 1 G PREMIX 50 ML IV SCH (17:10)
[2018-11-04] MEDS: FLUCONAZOLE 400MG/200ML BAG 200 ML IV SCH ×2 (19:09→20:58)
[2018-11-04] MEDS: PREDNISONE 20MG TABLET PO SCH (20:56)
[2018-11-04] MEDS: TAMSULOSIN HCL 0.4MG SR CAPSULE PO SCH (20:56)
[2018-11-04] MEDS: ATORVASTATIN CALCIUM 20MG TABLET PO SCH (20:57)
[2018-11-04] MEDS: AZITHROMYCIN 500 MG in DEXT 5% WATER 250 ML IV SCH (20:58)
[2018-11-05] VITALS (12 sets, daily range): BP systolic 105–145; BP diastolic 58–76
[2018-11-05] MEDS: IPRATROPIUM/ALBUTEROL 0.5-3(2.5)MG/3ML NEB INH SCH ×6 (01:43→20:09)
[2018-11-05] MEDS: HYDROCODONE/ACETAMINOPHEN 5/325MG TABLET PO PRN ×3 (03:19→21:59)
[2018-11-05] MEDS: CLONIDINE 0.2MG TABLET PO SCH ×3 (06:29→22:00)
[2018-11-05] MEDS: GABAPENTIN 300MG CAPSULE PO SCH ×3 (06:29→22:00)
[2018-11-05] MEDS: BLOOD SUGAR DIAGNOSTIC STRIP TEST SCH ×4 (06:36→21:00)
[2018-11-05 08:02] LABS: BASOPHILS % 0.2 % (0.0-2.0); EOSINOPHILS % 0.3 % (0.0-5.0); HEMATOCRIT. 30.4 % (42.0-52.0); HEMOGLOBIN. 9.9 g/dL (14.0-18.0); LYMPHOCYTES % 7.5 % (20.0-50.0); MEAN CORPUSCULAR HEMOGLOBIN 28.2 pg (28.0-32.0); MEAN PLATELET VOLUME 8.7 fl (7.4-10.4); MONOCYTES % 3.3 % (2.0-8.0); NEUTROPHILS % 88.7 % (40.0-76.0); PLATELET 173 x1000/uL (130-400); RED BLOOD CELL COUNT 3.49 mill/uL (4.7-6.1); RED CELL DISTRIBUTION WIDTH 18.7 % (11.6-14.6)
[2018-11-05 08:34] LABS: PHOSPHORUS 3.7 mg/dL (2.5-4.9)
[2018-11-05] MEDS: INSULIN LISPRO 100 UNITS/ML SUBCUT SCH ×4 (08:52→22:01)
[2018-11-05] MEDS: FUROSEMIDE 40MG/4ML VIAL IVP SCH (08:54)
[2018-11-05] MEDS: SULFAMETHOXAZOLE/TRIMETHOPRIM 800/160MG TABLET PO SCH (08:54)
[2018-11-05] MEDS: FAMOTIDINE 20MG/2ML VIAL IV SCH ×2 (08:54→22:01)
[2018-11-05] MEDS: FLUOXETINE HCL 20MG CAPSULE PO SCH (08:54)
[2018-11-05] MEDS: ASPIRIN 81MG EC TABLET PO SCH (08:54)
[2018-11-05] MEDS: POTASSIUM-SODIUM PHOSPHATE POWDER PACKET PO SCH ×2 (08:55→18:37)
[2018-11-05] MEDS: INSULIN GLARGINE UD 100 UNITS/ML SYR SUBCUT SCH (12:14)
[2018-11-05] MEDS: ONDANSETRON HCL 4MG/2ML INJ IV PRN ×2 (12:31→12:35)
[2018-11-05] MEDS: DIPHENHYDRAMINE 50MG/ML VIAL IV PRN ×2 (12:31→12:37)
[2018-11-05] MEDS ORDERED: FUROSEMIDE 40MG/4ML VIAL IVP NR (13:00)
[2018-11-05] MEDS: METHYLPREDNISOLONE SOD SUCC 40 MG/ML VIAL IV SCH (13:43)
[2018-11-05 13:44] LABS: BG CARBOXYHEMOGLOBIN 0.6 % (0.5-1.5); BG DEOXYHEMOGLOBIN 47.2 % (0.0-5.0); BG FRACTION INSPIRED OXYGEN 40; BG HCO3 ACT 18.1 mmol/L (22.0-26.0); BG METHEMOGLOBIN 0.3 % (0.0-1.5); BG OXYGEN SATURATION 52.4 % (92.0-98.5); BG OXYHEMOGLOBIN 51.9 % (94.0-97.0); BG PCO2 24.3 mmHg (35.0-45.0); BG PO2 < 30.3 mmHg (75.0-100.0); BG SAMPLE SITE RIGHT RADIAL; BG TOTAL HEMOGLOBIN 10.3 g/dL (12.0-18.0); BG VENT MODE MASK - VENTI
[2018-11-05] MEDS: FLUCONAZOLE 400MG/200ML BAG 200 ML IV SCH ×2 (17:00→18:54)
[2018-11-05] MEDS: RIVAROXABAN 20 MG TABLET PO SCH (18:37)
[2018-11-05] MEDS: CEFTRIAXONE 1 G PREMIX 50 ML IV SCH (18:38)
[2018-11-05] MEDS: ATORVASTATIN CALCIUM 20MG TABLET PO SCH (21:59)
[2018-11-05] MEDS: TAMSULOSIN HCL 0.4MG SR CAPSULE PO SCH (22:00)
[2018-11-05] MEDS: AZITHROMYCIN 500 MG in DEXT 5% WATER 250 ML IV SCH (22:01)
[2018-11-06] VITALS (12 sets, daily range): BP systolic 99–145; BP diastolic 47–77
[2018-11-06] MEDS: IPRATROPIUM/ALBUTEROL 0.5-3(2.5)MG/3ML NEB INH SCH ×6 (01:06→21:05)
[2018-11-06] MEDS: METHYLPREDNISOLONE SOD SUCC 40 MG/ML VIAL IV SCH ×2 (03:49→13:41)
[2018-11-06] MEDS ORDERED: SODIUM CHLORIDE 10% FOR INH 15ML VIAL NEB INH ONE (04:15)
[2018-11-06] MEDS ORDERED: SODIUM CHLORIDE 10% FOR INH 15ML VIAL NEB INH SCH (05:00)
[2018-11-06] MEDS: GABAPENTIN 300MG CAPSULE PO SCH ×3 (06:28→22:13)
[2018-11-06] MEDS: CLONIDINE 0.2MG TABLET PO SCH ×3 (06:28→22:14)
[2018-11-06] MEDS: BLOOD SUGAR DIAGNOSTIC STRIP TEST SCH ×4 (07:30→21:00)
[2018-11-06 07:50] LABS: BASOPHILS % 0.4 % (0.0-2.0); EOSINOPHILS % 0.1 % (0.0-5.0); HEMATOCRIT. 30.4 % (42.0-52.0); HEMOGLOBIN. 9.8 g/dL (14.0-18.0); LYMPHOCYTES % 7.6 % (20.0-50.0); MEAN CORPUSCULAR HEMOGLOBIN 28.1 pg (28.0-32.0); MEAN CORPUSCULAR VOLUME 87.3 fL (80.0-94.0); MONOCYTES % 3.4 % (2.0-8.0); NEUTROPHILS % 88.5 % (40.0-76.0); RED BLOOD CELL COUNT 3.48 mill/uL (4.7-6.1); RED CELL DISTRIBUTION WIDTH 18.4 % (11.6-14.6)
[2018-11-06] MEDS: INSULIN LISPRO 100 UNITS/ML SUBCUT SCH ×4 (08:59→22:15)
[2018-11-06] MEDS: FAMOTIDINE 20MG/2ML VIAL IV SCH ×2 (09:01→22:14)
[2018-11-06] MEDS: FLUOXETINE HCL 20MG CAPSULE PO SCH (09:01)
[2018-11-06] MEDS: ASPIRIN 81MG EC TABLET PO SCH (09:01)
[2018-11-06 10:42] LABS: PLATELET 185 x1000/uL (130-400)
[2018-11-06] MEDS: INSULIN GLARGINE UD 100 UNITS/ML SYR SUBCUT SCH (11:41)
[2018-11-06] MEDS: HYDROCODONE/ACETAMINOPHEN 5/325MG TABLET PO PRN ×2 (13:40→22:14)
[2018-11-06 15:06] LABS: QFT MITOGEN VALUE 0.12 IU/mL (.); QFT TB GOLD PLUS Indeterminate (Negative); QFT TB1 AG VALUE 0.02 IU/mL (.)
[2018-11-06] MEDS: CEFTRIAXONE 1 G PREMIX 50 ML IV SCH (16:58)
[2018-11-06] MEDS: FLUCONAZOLE 400MG/200ML BAG 200 ML IV SCH ×2 (17:00→18:24)
[2018-11-06] MEDS: RIVAROXABAN 20 MG TABLET PO SCH (17:02)
[2018-11-06] MEDS: TAMSULOSIN HCL 0.4MG SR CAPSULE PO SCH (22:13)
[2018-11-06] MEDS: ATORVASTATIN CALCIUM 20MG TABLET PO SCH (22:13)
[2018-11-06] MEDS: AZITHROMYCIN 500 MG in DEXT 5% WATER 250 ML IV SCH (22:17)
[2018-11-07] VITALS (11 sets, daily range): BP systolic 118–167; BP diastolic 55–82
[2018-11-07] MEDS: METHYLPREDNISOLONE SOD SUCC 40 MG/ML VIAL IV SCH ×2 (03:00→13:12)
[2018-11-07] MEDS: IPRATROPIUM/ALBUTEROL 0.5-3(2.5)MG/3ML NEB INH SCH ×4 (05:15→15:20)
[2018-11-07] MEDS: CLONIDINE 0.2MG TABLET PO SCH ×2 (06:50→13:17)
[2018-11-07] MEDS: GABAPENTIN 300MG CAPSULE PO SCH ×2 (06:51→13:12)
[2018-11-07 07:06] LABS: HEMATOCRIT. 29.4 % (42.0-52.0); HEMOGLOBIN. 9.5 g/dL (14.0-18.0); MEAN CORPUSCULAR HEMOGLOBIN 28.1 pg (28.0-32.0); MEAN PLATELET VOLUME 8.7 fl (7.4-10.4); PLATELET 179 x1000/uL (130-400); RED BLOOD CELL COUNT 3.38 mill/uL (4.7-6.1); RED CELL DISTRIBUTION WIDTH 17.9 % (11.6-14.6)
[2018-11-07 07:09] LABS: CHLORIDE 105 mEq/L (98-107)
[2018-11-07 07:21] LABS: PHOSPHORUS 2.8 mg/dL (2.5-4.9)
[2018-11-07] MEDS: BLOOD SUGAR DIAGNOSTIC STRIP TEST SCH ×2 (08:19→11:59)
[2018-11-07] MEDS: ASPIRIN 81MG EC TABLET PO SCH (08:53)
[2018-11-07] MEDS: FLUOXETINE HCL 20MG CAPSULE PO SCH (08:53)
[2018-11-07] MEDS: FAMOTIDINE 20MG/2ML VIAL IV SCH (08:54)
[2018-11-07] MEDS: INSULIN LISPRO 100 UNITS/ML SUBCUT SCH ×2 (08:54→13:12)
[2018-11-07 09:27] LABS: BG BASE EXCESS -0.4 mmol/L (-2.0-2.0); BG BILEVEL POS AIRWAY PRESSURE 15/5; BG CARBOXYHEMOGLOBIN 0.3 % (0.5-1.5); BG DEOXYHEMOGLOBIN 4.1 % (0.0-5.0); BG HCO3 ACT 23.1 mmol/L (22.0-26.0); BG METHEMOGLOBIN 0.3 % (0.0-1.5); BG OXYGEN SATURATION 95.9 % (92.0-98.5); BG OXYHEMOGLOBIN 95.3 % (94.0-97.0); BG PCO2 33.5 mmHg (35.0-45.0); BG PH 7.456 (7.350-7.450); BG PO2 83.2 mmHg (75.0-100.0); BG SAMPLE SITE RIGHT RADIAL; BG TOTAL HEMOGLOBIN 9.9 g/dL (12.0-18.0); BG VENT MODE MASK - BIPAP; BG VENT RATE 16 set
[2018-11-07] MEDS ORDERED: SODIUM POLYSTYRENE SULFONATE 15 G/60 ML BOT PO NR (11:00)
[2018-11-07] MEDS ORDERED: INSULIN GLARGINE UD 100 UNITS/ML SYR SUBCUT SCH (11:00)
[2018-11-07] MEDS ORDERED: LIDOCAINE HCL/PF 1% 2ML VIAL ONE (14:11)
[2018-11-07 14:26] LABS: PLATELET ESTIMATE NORMAL
[2018-11-07] MEDS: ACETAMINOPHEN 325MG TABLET PO PRN (15:02)
[2018-11-08 04:16] LABS: MYCOPLASMA PNEUMONIAE IGG < 100 U/mL (0-99); MYCOPLASMA PNEUMONIAE IGM < 770 U/mL (0-769)
== END 2018-11-07 16:55 | disposition short-term general hospital (02) | DRG 871 ==
LOC: ER 07:21 → ENRESERV 10:03 → EDBEDREQSVC 11:24 → EDBEDREQ 11:24 → EDBEDREQTM 11:24 → EDBEDREQSVC 11:32 → 3WST 11:32 → MICUNO 10-31 23:15 → 5EST 11-04 18:40
PROVIDERS: ADMIT Internal Medicine; ATTEND Internal Medicine
PROC: 5A09357 Assistance with Respiratory Ventilation, Less than 24 Consecutive Hours, Continuous Positive Airway Pressure (ICD-10-PCS; principal; 2018-10-31)
PROC: 5A09357 Assistance with Respiratory Ventilation, Less than 24 Consecutive Hours, Continuous Positive Airway Pressure (ICD-10-PCS; 2018-11-01)
PROC: 5A09357 Assistance with Respiratory Ventilation, Less than 24 Consecutive Hours, Continuous Positive Airway Pressure (ICD-10-PCS; 2018-11-02)
PROC: 5A09357 Assistance with Respiratory Ventilation, Less than 24 Consecutive Hours, Continuous Positive Airway Pressure (ICD-10-PCS; 2018-11-03)
PROC: 5A09357 Assistance with Respiratory Ventilation, Less than 24 Consecutive Hours, Continuous Positive Airway Pressure (ICD-10-PCS; 2018-11-04)
PROC: 5A09357 Assistance with Respiratory Ventilation, Less than 24 Consecutive Hours, Continuous Positive Airway Pressure (ICD-10-PCS; 2018-11-05)
PROC: 5A09357 Assistance with Respiratory Ventilation, Less than 24 Consecutive Hours, Continuous Positive Airway Pressure (ICD-10-PCS; 2018-11-06)
PROC: 5A09357 Assistance with Respiratory Ventilation, Less than 24 Consecutive Hours, Continuous Positive Airway Pressure (ICD-10-PCS; 2018-11-07)
DX: A41.9 Sepsis, unspecified organism (principal); J96.91 Respiratory failure, unspecified with hypoxia; I50.33 Acute on chronic diastolic (congestive) heart failure; J11.00 Influenza due to unidentified influenza virus with unspecified type of pneumonia; J44.0 Chronic obstructive pulmonary disease with (acute) lower respiratory infection; E87.4 Mixed disorder of acid-base balance; D68.59 Other primary thrombophilia; E87.1 Hypo-osmolality and hyponatremia; K56.7 Ileus, unspecified; N17.9 Acute kidney failure, unspecified; K51.90 Ulcerative colitis, unspecified, without complications; D64.9 Anemia, unspecified; E87.6 Hypokalemia; E83.42 Hypomagnesemia; E78.5 Hyperlipidemia, unspecified; E83.39 Other disorders of phosphorus metabolism; K80.20 Calculus of gallbladder without cholecystitis without obstruction; D63.8 Anemia in other chronic diseases classified elsewhere; D89.9 Disorder involving the immune mechanism, unspecified; F12.90 Cannabis use, unspecified, uncomplicated; F41.9 Anxiety disorder, unspecified; G89.29 Other chronic pain; I11.0 Hypertensive heart disease with heart failure; I25.10 Atherosclerotic heart disease of native coronary artery without angina pectoris; Z51.5 Encounter for palliative care; Z78.9 Other specified health status; Z79.4 Long term (current) use of insulin; Z86.19 Personal history of other infectious and parasitic diseases; Z86.711 Personal history of pulmonary embolism; Z86.718 Personal history of other venous thrombosis and embolism; N40.0 Benign prostatic hyperplasia without lower urinary tract symptoms; F32.9 Major depressive disorder, single episode, unspecified; E87.5 Hyperkalemia; Z68.30 Body mass index [BMI] 30.0-30.9, adult; E11.40 Type 2 diabetes mellitus with diabetic neuropathy, unspecified
CPT/HCPCS: 36415; 36600; 71045; 71250; 74018; 74176; 74177; 76700; 78580; 80048; 80061; 80202; 80305; 82375; 82550; 82553; 82805; 82962; 83036; 83605; 83615; 83735; 83880; 84100; 84145; 84439; 84443; 84484; 85379; 86480; 86635; 86738; 87015; 87045; 87116; 87427; 87449; 87804; 87899; 93005; 93306; 93970; 94640; 94660; 96365; 96375; 99291; C9113; J0360; J0456; J0696; J1200; J1450; J1650; J1815; J1885; J1940; J1956; J2270; J2405; J2543; J2765; J2920; J3370; J3475; J3480; J3490; J7030; J7040; J7050; J7060; J7070; J7131; J7512; J7620; Q9967